=== PATIENT | male | born 1980 | race Caucasian/White ===

== ENCOUNTER → 2020-11-16 | Outpatient (CLI) | payer SELFPAY ==
[~2020-11-16] MED LIST: LISINOPRIL20 MG PO; LODINE CAP 300300 MG PO; METHADONE HCL40 MG PO; NITROSTAT 0.40.4 MG SL; NORCO 7.5-3251 EACH PO; OMEPRAZOLE20 MG PO; ONDANSETRON ODT4 MG PO; PROTONIX40 MG PO; TAB-A-VITE1 EACH PO; TRAMADOL HCL50 MG PO; ZOCOR 40 MG TAB40 MG PO; ZOFRAN ODT 4 MG4 MG SL; ZOFRAN4 MG PO
== END ==
LOC: US 08:00
DX: R10.13 Epigastric pain (principal); Z90.49 Acquired absence of other specified parts of digestive tract; Z98.890 Other specified postprocedural states
CPT/HCPCS: 76705

== ENCOUNTER 2021-01-09 17:57 | Emergency (ER) | payer SELFPAY ==
[2021-01-09 20:11] LABS: HEMOGLOBIN 18.9 gm/dl (14.0-17.5); RED BLOOD COUNT 5.63 M/UL (4.20-5.50); WHITE BLOOD COUNT 6.9 K/UL (4.5-11.0)
[2021-01-09 20:22] LABS: BUN/CREATININE RATIO 8 (0-10)
[2021-01-10] MEDS ORDERED: OMEPRAZOLE20 MG PO (19:42)
== END 2021-01-09 23:51 | disposition home or self-care (01) ==
LOC: ER1 17:57
PROVIDERS: Physician Assistant
DX: R07.89 Other chest pain (principal); R10.12 Left upper quadrant pain; R10.32 Left lower quadrant pain; R11.0 Nausea; F17.210 Nicotine dependence, cigarettes, uncomplicated; Z90.49 Acquired absence of other specified parts of digestive tract
CPT/HCPCS: 71045; 80053; 82550; 82553; 83874; 84484; 85025; 93005; 99285

== ENCOUNTER 2021-01-10 12:20 | Emergency (ER) | payer SELFPAY ==
[2021-01-10 13:44] LABS: HEMOGLOBIN 18.3 gm/dl (14.0-17.5); RED BLOOD COUNT 5.45 M/UL (4.20-5.50)
[2021-01-10 14:04] LABS: BUN/CREATININE RATIO 7 (0-10)
[2021-01-10] MEDS ORDERED: OMEPRAZOLE20 MG PO (19:42)
== END 2021-01-10 19:53 | disposition home or self-care (01) ==
LOC: ER1 12:20
PROVIDERS: Physician Assistant
DX: R10.12 Left upper quadrant pain (principal); R10.13 Epigastric pain; F17.200 Nicotine dependence, unspecified, uncomplicated; Z90.49 Acquired absence of other specified parts of digestive tract; Z87.19 Personal history of other diseases of the digestive system
CPT/HCPCS: 80053; 82550; 82553; 83690; 83735; 83874; 84484; 85025; 85379; 93005; 96374; 96375; 99285; J2405

== ENCOUNTER 2021-05-05 15:47 | Emergency (ER) | payer SELFPAY ==
[2021-05-05 16:22] LABS: HEMOGLOBIN 18.3 gm/dl (14.0-17.5); RED BLOOD COUNT 5.43 M/UL (4.20-5.50); WHITE BLOOD COUNT 7.3 K/UL (4.5-11.0)
[2021-05-05 16:51] LABS: BUN/CREATININE RATIO 3 (0-10)
== END 2021-05-05 20:35 | disposition home or self-care (01) ==
LOC: ER1 15:47
PROVIDERS: Physician Assistant; Preventive Medicine Occupational Medicine
DX: B34.9 Viral infection, unspecified (principal); I10 Essential (primary) hypertension; Z20.822 Contact with and (suspected) exposure to COVID-19
CPT/HCPCS: 70450; 71045; 80053; 80307; 81001; 82550; 82553; 83874; 84484; 85025; 86140; 87086; 93005; 94664; 96374; 96375; 99285; C9113; J1885; U0002

== ENCOUNTER 2021-06-18 13:13 | Emergency (ER) | payer SELFPAY ==
[2021-06-18 14:54] LABS: RED BLOOD COUNT 5.16 M/UL (4.20-5.50); WHITE BLOOD COUNT 5.7 K/UL (4.5-11.0)
[2021-06-18 15:19] LABS: BUN/CREATININE RATIO 9 (0-10)
[2021-06-18] MEDS ORDERED: ZOFRAN 4 MG TAB4 MG PO (18:17)
== END 2021-06-18 18:30 | disposition home or self-care (01) ==
LOC: ER1 13:13
PROVIDERS: Emergency Medicine
DX: R10.9 Unspecified abdominal pain (principal); R11.2 Nausea with vomiting, unspecified; F17.200 Nicotine dependence, unspecified, uncomplicated; Z20.822 Contact with and (suspected) exposure to COVID-19
CPT/HCPCS: 80053; 81001; 82550; 82553; 83690; 83874; 84484; 85025; 96374; 96375; 99284; J2270; J2405; Q9967; U0002

== ENCOUNTER → 2021-07-08 | Day surgery (SDC) | payer OTHER ==
[~2021-07-08] MED LIST changes: +ZOFRAN 4 MG TAB4 MG PO
== END | disposition home or self-care (01) ==
LOC: OR 08:56
DX: K29.70 Gastritis, unspecified, without bleeding (principal); K31.9 Disease of stomach and duodenum, unspecified; K21.9 Gastro-esophageal reflux disease without esophagitis; F17.200 Nicotine dependence, unspecified, uncomplicated; Z79.2 Long term (current) use of antibiotics; Z79.899 Other long term (current) drug therapy
CPT/HCPCS: J2250; J2704; J7030

== ENCOUNTER → 2021-07-26 | Outpatient (CLI) | payer OTHER | LOC: KOH-I 09:16 | DX: M79.672 Pain in left foot (principal); M25.572 Pain in left ankle and joints of left foot; S82.492A Other fracture of shaft of left fibula, initial encounter for closed fracture | CPT/HCPCS: 73610; 73630 ==

== ENCOUNTER → 2021-07-29 | Outpatient (CLI) | payer OTHER | LOC: KOH-I 08:30 | DX: S82.62XA Displaced fracture of lateral malleolus of left fibula, initial encounter for closed fracture (principal); W19.XXXA Unspecified fall, initial encounter | CPT/HCPCS: 73700 ==

== ENCOUNTER → 2021-09-05 | Outpatient (CLI) | payer OTHER | LOC: EMI 10:21 | DX: S82.832D Other fracture of upper and lower end of left fibula, subsequent encounter for closed fracture with routine healing (principal); X58.XXXD Exposure to other specified factors, subsequent encounter | CPT/HCPCS: 73721 ==

== ENCOUNTER 2021-10-09 19:46 | Emergency (ER) | payer OTHER ==
[~2021-10-09 19:46] MED LIST changes: +PROTONIX20 MG PO; +VITAMIN D21250 MCG PO; +VOLTAREN ARTHRI20 GM TOP
[2021-10-09 20:59] LABS: BUN/CREATININE RATIO 6 (0-10)
[2021-10-09] MEDS ORDERED: ZESTRIL20 MG PO (21:04)
== END 2021-10-09 21:15 | disposition home or self-care (01) ==
LOC: ER1 19:46
PROVIDERS: Nurse Practitioner
DX: S90.511A Abrasion, right ankle, initial encounter (principal); I10 Essential (primary) hypertension; Z76.0 Encounter for issue of repeat prescription; F17.210 Nicotine dependence, cigarettes, uncomplicated; W22.8XXA Striking against or struck by other objects, initial encounter
CPT/HCPCS: 73610; 73620; 80053; 99283

== ENCOUNTER → 2021-10-17 | Outpatient (CLI) | payer OTHER ==
[~2021-10-17] MED LIST changes: +ZESTRIL20 MG PO
== END ==
LOC: KOH-I 15:14
DX: S82.832K Other fracture of upper and lower end of left fibula, subsequent encounter for closed fracture with nonunion (principal)
CPT/HCPCS: 73610

== ENCOUNTER → 2021-11-08 | Outpatient (CLI) | payer MEDICAID ==
[~2021-11-08] MED LIST changes: +K-TAB ER10 MEQ PO
== END ==
LOC: KOH-I 12:54
DX: S82.832A Other fracture of upper and lower end of left fibula, initial encounter for closed fracture (principal)
CPT/HCPCS: 73610; J1885

== ENCOUNTER 2021-11-09 03:11 | Emergency (ER) | payer MEDICAID ==
[2021-11-09 06:55] LABS: RED BLOOD COUNT 4.58 M/UL (4.20-5.50); WHITE BLOOD COUNT 6.1 K/UL (4.5-11.0)
[2021-11-09 06:56] LABS: BUN/CREATININE RATIO 9 (0-10)
== END 2021-11-09 09:40 | disposition home or self-care (01) ==
LOC: ER1 03:11
DX: R10.9 Unspecified abdominal pain (principal); R20.2 Paresthesia of skin; R07.89 Other chest pain; R10.819 Abdominal tenderness, unspecified site; Z87.19 Personal history of other diseases of the digestive system; Z90.49 Acquired absence of other specified parts of digestive tract; F17.210 Nicotine dependence, cigarettes, uncomplicated
CPT/HCPCS: 71045; 80053; 81001; 82550; 82553; 84484; 85025; 93005; 99284

== ENCOUNTER 2021-11-14 21:36 | Emergency (ER) | payer OTHER ==
[2021-11-14 22:08] LABS: HEMOGLOBIN 14.9 gm/dl (14.0-17.5); RED BLOOD COUNT 4.38 M/UL (4.20-5.50); WHITE BLOOD COUNT 5.3 K/UL (4.5-11.0)
[2021-11-14 22:48] LABS: BUN/CREATININE RATIO 11 (0-10)
[2021-11-15] MEDS ORDERED: CARAFATE 1 GM TA1 GM PO (02:14)
[2021-11-17] MEDS ORDERED: GABAPENTIN100 MG PO (07:33)
[2021-11-17] MEDS ORDERED: NEURONTIN300 MG PO (07:33)
[2021-11-17] MEDS ORDERED: NEURONTIN600 MG PO (07:34)
== END 2021-11-15 02:58 | disposition home or self-care (01) ==
LOC: ER1 21:36
PROVIDERS: Nurse Practitioner
DX: R55 Syncope and collapse (principal); S80.12XA Contusion of left lower leg, initial encounter; R10.11 Right upper quadrant pain; R10.13 Epigastric pain; R10.811 Right upper quadrant abdominal tenderness; K21.9 Gastro-esophageal reflux disease without esophagitis; F17.200 Nicotine dependence, unspecified, uncomplicated; Z90.49 Acquired absence of other specified parts of digestive tract; Z79.899 Other long term (current) drug therapy; W19.XXXA Unspecified fall, initial encounter
CPT/HCPCS: 73590; 80053; 80076; 81001; 82550; 82553; 83605; 83690; 84484; 85025; 93005; 96374; 99284; J1885; Q9967

== ENCOUNTER → 2021-11-17 | Day surgery (SDC) | payer OTHER ==
[~2021-11-17] MED LIST changes: +CARAFATE 1 GM TA1 GM PO; +GABAPENTIN100 MG PO; +NEURONTIN300 MG PO; +NEURONTIN600 MG PO
== END | disposition home or self-care (01) ==
LOC: OR 06:52
DX: R19.7 Diarrhea, unspecified (principal); K64.0 First degree hemorrhoids; K63.89 Other specified diseases of intestine; R10.84 Generalized abdominal pain; I10 Essential (primary) hypertension; K21.9 Gastro-esophageal reflux disease without esophagitis; F17.210 Nicotine dependence, cigarettes, uncomplicated; Z79.899 Other long term (current) drug therapy
CPT/HCPCS: J2704; J7040

== ENCOUNTER 2021-11-24 11:18 | Inpatient (IN) | payer OTHER ==
[~2021-11-24] VITALS: Ht 182.9 cm; Wt 72.6 kg
[2021-11-24 12:26] LABS: HEMOGLOBIN 15.5 gm/dl (14.0-17.5); RED BLOOD COUNT 4.54 M/UL (4.20-5.50)
[2021-11-25 06:30] LABS: WHITE BLOOD COUNT 4.2 K/UL (4.5-11.0)
[2021-11-25 06:32] LABS: HEMOGLOBIN 12.8 gm/dl (14.0-17.5); RED BLOOD COUNT 3.81 M/UL (4.20-5.50)
[2021-11-25 06:49] LABS: BUN/CREATININE RATIO 9 (0-10)
[2021-11-25 08:14] LABS: RPR Non Reactive (Non Reactive)
[2021-11-25] MEDS ORDERED: LISINOPRIL20 MG PO (15:24)
[2021-11-25] MEDS ORDERED: POTASSIUM CHLO10 ME1 PO (15:25)
[2021-11-25] MEDS ORDERED: SUCRALFATE1 GM PO (15:26)
[2021-11-26 06:18] LABS: BUN/CREATININE RATIO 7 (0-10)
== END 2021-11-26 10:59 | disposition home or self-care (01) | DRG 683 ==
LOC: ER1 11:18 → MED SURG 4 20:12 → CDU 20:12 → MED SURG 4 11-25 03:22
PROVIDERS: Internal Medicine; Physician Assistant; ADMIT Internal Medicine
DX: N17.9 Acute kidney failure, unspecified (principal); Z20.822 Contact with and (suspected) exposure to COVID-19; M62.82 Rhabdomyolysis; E86.0 Dehydration; I95.9 Hypotension, unspecified; B86 Scabies; L25.1 Unspecified contact dermatitis due to drugs in contact with skin; F10.10 Alcohol abuse, uncomplicated; I10 Essential (primary) hypertension; F12.10 Cannabis abuse, uncomplicated; F17.210 Nicotine dependence, cigarettes, uncomplicated; Z91.14 Patient's other noncompliance with medication regimen; Z82.49 Family history of ischemic heart disease and other diseases of the circulatory system; Z90.49 Acquired absence of other specified parts of digestive tract
CPT/HCPCS: 0240U; 36415; 71045; 80048; 80053; 80307; 81001; 82550; 82553; 83605; 85025; 86140; 86592; 93005; 96360; 96361; 96372; 99285; G0378; J1644

== ENCOUNTER 2021-12-01 19:39 | Emergency (ER) | payer OTHER ==
[~2021-12-01 19:39] MED LIST changes: +POTASSIUM CHLO10 ME1 PO; +SUCRALFATE1 GM PO
[2021-12-02] MEDS ORDERED: CEPHALEXIN500 M1 PO (01:41)
[2021-12-02] MEDS ORDERED: BACTRIM 400-801 EACH PO (01:41)
[2021-12-03] MEDS ORDERED: BACTROBAN OINT22 GM TOP (15:22)
== END 2021-12-02 01:50 | disposition home or self-care (01) ==
LOC: ER1 19:39
DX: L98.9 Disorder of the skin and subcutaneous tissue, unspecified (principal); I10 Essential (primary) hypertension; R00.2 Palpitations
CPT/HCPCS: 93005; 99284

== ENCOUNTER 2021-12-03 12:01 | Emergency (ER) | payer OTHER ==
[~2021-12-03 12:01] MED LIST changes: +BACTRIM 400-801 EACH PO; +CEPHALEXIN500 M1 PO
[2021-12-03 13:07] LABS: HEMOGLOBIN 15.9 gm/dl (14.0-17.5); RED BLOOD COUNT 4.63 M/UL (4.20-5.50); WHITE BLOOD COUNT 4.7 K/UL (4.5-11.0)
[2021-12-03 13:40] LABS: BUN/CREATININE RATIO 9 (0-10)
[2021-12-03] MEDS ORDERED: BACTROBAN OINT22 GM TOP (15:22)
== END 2021-12-03 15:38 | disposition home or self-care (01) ==
LOC: ER1 12:01
PROVIDERS: Physician Assistant
DX: R07.89 Other chest pain (principal); L98.9 Disorder of the skin and subcutaneous tissue, unspecified; F15.10 Other stimulant abuse, uncomplicated; F17.210 Nicotine dependence, cigarettes, uncomplicated
CPT/HCPCS: 71045; 80053; 82550; 82553; 84484; 85025; 93005; 99285

== ENCOUNTER → 2021-12-13 | Outpatient (CLI) | payer OTHER ==
[~2021-12-13] MED LIST changes: +BACTROBAN OINT22 GM TOP
== END ==
LOC: KOH-I 08:52
DX: S82.832K Other fracture of upper and lower end of left fibula, subsequent encounter for closed fracture with nonunion (principal)
CPT/HCPCS: 73610

== ENCOUNTER → 2022-01-02 | Outpatient (CLI) | payer OTHER ==
[~2022-01-02] MED LIST changes: +[UNRECOGNIZED DRUG - OTHER] TOP
[2022-01-02 12:15] LABS: HEMOGLOBIN 16.2 gm/dl (14.0-17.5); RED BLOOD COUNT 4.68 M/UL (4.20-5.50); WHITE BLOOD COUNT 5.2 K/UL (4.5-11.0)
[2022-01-02 12:46] LABS: BUN/CREATININE RATIO 9 (0-10)
== END ==
LOC: OPSV2 10:00
PROVIDERS: Podiatrist Foot & Ankle Surgery
DX: Z01.812 Encounter for preprocedural laboratory examination (principal); S82.832K Other fracture of upper and lower end of left fibula, subsequent encounter for closed fracture with nonunion; X58.XXXD Exposure to other specified factors, subsequent encounter
CPT/HCPCS: 80048; 85027

== ENCOUNTER → 2022-01-11 | Day surgery (SDC) | payer OTHER ==
[~2022-01-11] MED LIST changes: +ASPIRIN325 MG PO; +CEPHALEXIN500 MG PO; +DRISDOL1250 MCG PO; +IBU800 MG PO; +PERCOCET 10-321 EACH PO; +VITAMIN C500 M4 PO
== END | disposition home or self-care (01) ==
LOC: OR 07:30 → CCU 16:38 → OR 16:38
DX: S82.832K Other fracture of upper and lower end of left fibula, subsequent encounter for closed fracture with nonunion (principal); M25.372 Other instability, left ankle; G57.52 Tarsal tunnel syndrome, left lower limb; G57.32 Lesion of lateral popliteal nerve, left lower limb; I10 Essential (primary) hypertension; F17.210 Nicotine dependence, cigarettes, uncomplicated; X58.XXXD Exposure to other specified factors, subsequent encounter
CPT/HCPCS: 73600; 73610; 76000; C1713; J0690; J1100; J1170; J1885; J2001; J2250; J2370; J2405; J2704; J2795; J3010; J3370; Q4133

== ENCOUNTER → 2022-01-19 | Outpatient (CLI) | payer OTHER | LOC: KOH-I 08:22 | DX: S82.402A Unspecified fracture of shaft of left fibula, initial encounter for closed fracture (principal) | CPT/HCPCS: 73610 ==

== ENCOUNTER → 2022-02-13 | Outpatient (CLI) | payer OTHER | LOC: KOH-I 10:35 | DX: S82.832D Other fracture of upper and lower end of left fibula, subsequent encounter for closed fracture with routine healing (principal) | CPT/HCPCS: 73610 ==